=== PATIENT | male | born 1990 ===

== ENCOUNTER 2017-12-23 05:30 | Day surgery (SDC) | payer OTHER ==
[2017-12-23] MEDS ORDERED: NEXIUM 24HR20 MG PO (09:59)
== END 2017-12-23 11:10 | disposition home or self-care (01) ==
LOC: AMB-ENDOS 05:30
DX: D13.1 Benign neoplasm of stomach (principal); K29.70 Gastritis, unspecified, without bleeding; K21.0 Gastro-esophageal reflux disease with esophagitis; K44.9 Diaphragmatic hernia without obstruction or gangrene